=== PATIENT | male | born 1985 | race Two or more races ===

== ENCOUNTER 2023-01-02 18:04 | Emergency (ER) | payer OTHER ==
[~2023-01-02] VITALS: Ht 162.6 cm; Wt 74.1 kg
[2023-01-02] MEDS ORDERED: ACETAMINOPHEN 500 MG TABLET PO ONE (22:00)
[2023-01-02 22:30] VITALS: BP 124/80; PULSE 75; RESP 20; TEMP 98.7
== END 2023-01-02 22:59 | disposition home or self-care (01) ==
LOC: EMS 18:06
DX: S53.402A Unspecified sprain of left elbow, initial encounter (principal); F17.210 Nicotine dependence, cigarettes, uncomplicated; Z98.890 Other specified postprocedural states; W19.XXXA Unspecified fall, initial encounter; Y93.89 Activity, other specified; Y92.89 Other specified places as the place of occurrence of the external cause; Y99.8 Other external cause status
CPT/HCPCS: 29105; 73503; 99284